=== PATIENT | female | born 1985 | race Caucasian/White ===

== ENCOUNTER 2019-03-12 17:59 | Emergency (ER) | payer OTHER ==
[~2019-03-12] VITALS: Ht 172.7 cm; Wt 127.0 kg
[2019-03-12 18:07] VITALS: BP 154/89
[2019-03-12] MEDS ORDERED: SYNTHROID200 MCG PO (18:10)
[2019-03-12] MEDS ORDERED: PREDNISONE 20 M20 M1 PO (18:22)
[2019-03-12] MEDS ORDERED: ZPAK PO (18:22)
== END 2019-03-12 18:49 | disposition home or self-care (01) ==
LOC: M.ERS 17:59
DX: J40 Bronchitis, not specified as acute or chronic (principal); Z90.89 Acquired absence of other organs; Z98.890 Other specified postprocedural states

== ENCOUNTER 2019-04-02 19:51 | Inpatient (IN) | payer OTHER ==
[~2019-04-02] VITALS: Ht 172.7 cm; Wt 128.4 kg
[~2019-04-02 19:51] MED LIST: PREDNISONE 20 M20 M1 PO; SYNTHROID200 MCG PO; ZPAK PO
[2019-04-02 20:04] VITALS: BP 145/93
[2019-04-02 21:02] LABS: ABSOLUTE LYMPHOCYTES 0.4 thou/uL (0.8-5.3); ABSOLUTE MONOCYTES 0.5 thou/uL (0.0-1.2); ABSOLUTE NEUTROPHILS 2.6 thou/uL (1.6-8.1); HEMOGLOBIN 12.2 gm/dL (12.0-15.0); LYMPHOCYTES 12.1 %; MCH 28.4 pg (26.0-34.0); MCV 83.6 fL (80.0-100.0); MONOCYTES 14.5 %; MPV 8.6 fl. (7.2-11.1); NUCLEATED RBCS 0 /100WBC; PLATELET COUNT* 248 thou/uL (150-400); POLYS 71.4 %; RBC 4.31 mil/uL (4.20-5.00); RDW-CV 12.8 % (10.5-14.5); WBC 3.6 thou/uL (4.0-11.0)
[2019-04-02 21:20] LABS: ALBUMIN 3.4 g/dL (3.4-5.0); CALCIUM 9.1 mg/dL (8.5-10.1); CREATININE 0.9 mg/dL (0.6-1.3); POTASSIUM 3.9 mmol/L (3.5-5.1); TOTAL BILIRUBIN 0.4 mg/dL (<0.1-1.0); TOTAL PROTEIN 7.3 g/dL (6.4-8.2)
[2019-04-02 23:38] LABS: INFLUENZA A ANTIGEN Negative (Negative); INFLUENZA B ANTIGEN Negative (Negative)
[2019-04-02 23:40] LABS: APTT 26.3 Seconds (25.0-31.3); PROTIME 10.7 Seconds (9.20-11.50)
[2019-04-03 00:52] VITALS: BP 137/68
--- NOTE | 2019-04-03 02:41 | NUR ---
PT ADMITTED TO ROOM 225 FROM ED WITH DX OF CP,ELEVATED D-DIMER,DECREASED TSH. PT CTA WAS INCONCLUSIVE R/T PERFUSION. LOVENOX,ASPIRIN AND IV BOLUS GIVEN IN ED. PT IS AOX4, DENIES PAIN AT THIS TIME. VSS ON RA. PT ORIENTED TO POC, TREATMENTS AND ROOM. PT FALL AGREEMENT SIGNED. PT IS SR ON TELE. MEDICATIONS GIVEN PER EMAR.PT IS UP AD MO WITH CALL LIGHT IN REACH.
[2019-04-03 04:00] VITALS: BP 101/61
[2019-04-03 05:07] LABS: HEMATOCRIT 31.1 % (37.0-47.0); HEMOGLOBIN 10.8 gm/dL (12.0-15.0); MCHC 34.8 g/dL (28.0-37.0); MCV 83.5 fL (80.0-100.0); MPV 8.7 fl. (7.2-11.1); NUCLEATED RBCS 0 /100WBC; PLATELET COUNT* 201 thou/uL (150-400); RBC 3.72 mil/uL (4.20-5.00); RDW-CV 12.8 % (10.5-14.5); WBC 2.4 thou/uL (4.0-11.0)
[2019-04-03 05:14] LABS: CREATININE 0.7 mg/dL (0.6-1.3); POTASSIUM 3.7 mmol/L (3.5-5.1)
[2019-04-03 05:56] LABS: ABSOLUTE EOSINOPHILS 0.1 thou/uL (0.0-0.7); ABSOLUTE LYMPHOCYTES 0.4 thou/uL (0.8-5.3); ABSOLUTE MONOCYTES 0.7 thou/uL (0.0-1.2); ABSOLUTE NEUTROPHILS 1.2 thou/uL (1.6-8.1)
[2019-04-03 05:57] LABS: ANISOCYTOSIS 1+; PLATELET ESTIMATE ADEQUATE; POIKILOCYTOSIS 1+
[2019-04-03 07:00] VITALS: BP 122/70
--- NOTE | 2019-04-03 10:18 | NUR ---
CM COMPLETED INITIAL ASSESSMENT TO DISCUSS D/C PLANNING. PT A&OX4. PT FAMILY PRESENT DURING ASSESSMENT. PT LIVES W/SPOUSE AND CHILDREN. "BABYSITS NEPHEW" FOR INCOME. PT IS MEDICAID PENDING. PT HAS GOOD FAMILY SUPPORT. NO DMES, OR ANY HX W/SNF OR HH. CM TO REMAIN AVAIL TO ASSIST NEEDED.
[2019-04-03 11:54] VITALS: BP 118/70
--- NOTE | 2019-04-03 12:52 | EKG ---
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1985 Requested By: Elizabeth Palencia Order Number: [id number] MD: Brandyn Dent Measurements Intervals [place] Rate: 112 P: 58 NH: 169 QRS: -46 QRSD: 97 T: 55 QT: 315 QTc: 430 Interpretive Statements Sinus tachycardia Atrial premature complexes Left anterior fascicular block No previous ECG available for comparison Electronically Signed On 04-03-2019 12:52:05 LABORATORY SCIENTIST by Brandyn Dent [email or web address] <ELECTRONICALLY SIGNED> By: Brandyn Dent MD, [facility] 04/03/19 1252 16 16 Brandyn Dent MD, FACC /EPI
--- NOTE | 2019-04-03 13:44 | NUR ---
Nutrition: Consult received for "hypothyroidism." Pt with Hashimotos, no thyroid at all. Currently adjusting thyroid med/dosages to get it right. Albumin 3.4, decreased TSH. Wt: 280#. Regular diet. Did not go in detail about thyroid-type diet, iodine, etc since pt has no thyroid. Did discuss general healthy diet, adding F/V for more energy. Pt was recptive to conversation. Otherwise, low risk.
[2019-04-03 14:34] LABS: CHOLESTEROL 143 mg/dL (<200); HDL CHOLESTEROL 37 mg/dL (>40); LDL CHOLESTEROL 93 mg/dL (<100); TC:HDL 3.9 Ratio (Not establshd); TRIGLYCERIDE 68 mg/dL (<150); VLDL 14 mg/dL (<40)
[2019-04-03 14:37] LABS: SERUM ASSESSMENT Clear
--- NOTE | 2019-04-03 16:28 | 2DMMODE ---
[place] [address] 2 D/M-MODE ECHOCARDIOGRAM Name: DANG SERRANO Room: [address] IN [facility]#: [id number] Admission: 04/02/19 Attend Phys: Gt King MD Discharge: Date of : 83 Date of Service: 04/03/19 1628 Report #: [id number] THIS REPORT FOR: //name// APPROVED REPORT Study performed: 04/03/2019 15:44:02 EXAM: Comprehensive 2D, Doppler, and color-flow Echocardiogram Patient Location: In-Patient Room #: [facility] Status: routine BSA: 2.36 HR: 86 bpm BP: 118/70 mmHg Rhythm: NSR Other Information Study Quality: Good Indications Tachycardia Chest Pain 2D Dimensions IVSd: 8.50 (7-11mm) LVOT Diam: 19.95 (18-24mm) LVDd: 40.70 mm PWd: 8.39 (7-11mm) Ascending Ao: 26.98 (22-36mm) LVDs: 24.04 (25-40mm) Aortic Root: 29.06 mm Volumes Left Atrial Volume (Systole) LA ESV Index: 22.70 mL/m2 Aortic Valve AoV Peak Adriel.: 1.42 m/s AO Peak Gr.: 8.04 mmHg LVOT Max P.46 mmHg AO Mean Gr.: 4.58 mmHg LVOT Mean P.96 mmHg LVOT Max V: 1.45 m/s AO V2 VTI: 25.53 cm LVOT Mean V: 0.90 m/s MIRA (VTI): 3.20 cm2 LVOT V1 VTI: 26.13 cm Mitral Valve E/A Ratio: 1.46 MV Decel. Time: 234.13 [place] [address] 2 D/M-MODE ECHOCARDIOGRAM Name: DANG SERRANO Room: [address] IN ..#: [id number] Admission: 04/02/19 Attend Phys: Gt King MD Discharge: Date of : 83 Date of Service: 04/03/19 1628 Report #: [id number] MV E Max Adriel.: 0.76 m/s MV PHT: 67.90 ms MVA (PHT): 3.24 cm2 TDI E/Lateral E': 5.43 E/Medial E': 5.85 Medial E' Adriel.: 0.13 m/s Lateral E' Adriel.: 0.14 m/s Pulmonary Valve PV Peak Adriel.: 1.09 m/s PV Peak Gr.: 4.73 mmHg Left Ventricle The left ventricle is normal size. There is normal LV segmental wall motion. There is normal left ventricular wall thickness. Left ventricular systolic function is normal. The left ventricular ejection fraction is within the normal range. LVEF is 60-65%. The left ventricular diastolic function is normal. Right Ventricle The right ventricle is normal size. The right ventricular systolic function is normal. Atria The left atrium size is normal. The right atrium size is normal. Aortic Valve The aortic valve is normal in structure. No aortic regurgitation is present. There is no aortic valvular stenosis. Mitral Valve The mitral valve is normal in structure. There is no mitral valve regurgitation noted. No evidence of mitral valve stenosis. Tricuspid Valve The tricuspid valve is normal in structure. Unable to assess PA pressure. Trace tricuspid regurgitation. Pulmonic Valve The pulmonary valve is normal in structure. Trace pulmonic regurgitation. Great Vessels The aortic root is normal in size. IVC is normal in size and collapses >50% [place] [address] 2 D/M-MODE ECHOCARDIOGRAM Name: DANG SERRANO Room: [address] IN [facility]#: [id number] Admission: 04/02/19 Attend Phys: Gt King MD Discharge: Date of : 83 Date of Service: 04/03/19 1628 Report #: [id number] Pericardium There is no pericardial effusion. <Conclusion> LVEF is 60-65%. The left ventricle is normal size. There is normal left ventricular wall thickness. There is normal LV segmental wall motion. Left ventricular systolic function is normal. The left ventricular ejection fraction is within the normal range. The left ventricular diastolic function is normal. Unable to assess PA pressure. Trace tricuspid regurgitation. Trace pulmonic regurgitation. <ELECTRONICALLY SIGNED> By: Annie Gao MD, FACC 04/03/19 1628 1628 1628 Annie Gao MD, FACC /INF
[2019-04-03 17:06] VITALS: BP 99/63
[2019-04-03 20:00] VITALS: BP 100/43
[2019-04-04] VITALS: BP 96/49
[2019-04-04 02:07] LABS: GLYCOHEMOGLOBIN (HGB A1C) 5.4 % (4.8-5.6)
[2019-04-04 04:00] VITALS: BP 94/51
[2019-04-04 04:03] LABS: HEMATOCRIT 33.5 % (37.0-47.0); HEMOGLOBIN 11.3 gm/dL (12.0-15.0); MCH 28.5 pg (26.0-34.0); MCHC 33.8 g/dL (28.0-37.0); MCV 84.3 fL (80.0-100.0); MPV 8.3 fl. (7.2-11.1); RBC 3.97 mil/uL (4.20-5.00); WBC 2.8 thou/uL (4.0-11.0)
[2019-04-04 04:21] LABS: ALBUMIN 2.9 g/dL (3.4-5.0); CALCIUM 8.7 mg/dL (8.5-10.1); CREATININE 0.7 mg/dL (0.6-1.3); MAGNESIUM 1.7 mg/dL (1.8-2.4); TOTAL BILIRUBIN 0.3 mg/dL (<0.1-1.0); TOTAL PROTEIN 6.2 g/dL (6.4-8.2)
--- NOTE | 2019-04-04 06:37 | NUR ---
PT HAS RESTED COMFORTABLY T/O NIGHT WITHOUT C/O PAIN OR SOA. PT IS NOT CURRENTLY TAKING HOME LEVOTHYROXINE PER EMAR.
[2019-04-04 08:00] VITALS: BP 93/58
--- NOTE | 2019-04-04 10:26 | NUR ---
ASSUMED PT CARE AT 0800, AOX4, UP AD MO, O2 SAT 90'S RA. TRACING SINUS TACH ON TELE. PT DENIES PAIN. PT FOR DISCHARGE. AM ASSESSMENT CHARTED, MEDS GIVEN PER MAR. CALL LIGHT WITHIN REACH WILL CONTINUE TO MONITOR
--- NOTE | 2019-04-04 11:58 | NUR ---
IDANIA spoke with Dr Jess requesting Endo f/u. Pt wants Dr Syd CM contacted Dr Mackey office, cost for patient pay appt will be between $150-280. Updated Pt, per Pt she will have health insurance on 04/16/19. Faxed referral and instructed Pt to contact Dr Velarde's office to schedule an appt post 04/16/19
[2019-04-04 12:00] VITALS: BP 110/55
[2019-04-04 12:51] VITALS: BP 93/58
--- NOTE | 2019-04-04 13:15 | NUR ---
DISCHARGED PLAN DISCUSSED WITH THE PT. MEDICATION PACKET GIVEN. IV, TELE REMOVED. ALL BELONGINGS PACKED AND CHECKED. LEFT THE UNIT AT 1315.
[2019-04-08 22:06] LABS: ADENOVIRUS Negative (Negative); INFLUENZA A Negative (Negative); INFLUENZA B Negative (Negative); METAPNEUMOVIRUS Negative (Negative); PARAINFLUENZA 1 Negative (Negative); PARAINFLUENZA 2 Negative (Negative); PARAINFLUENZA 3 Negative (Negative); RHINOVIRUS Negative (Negative); RSV A Negative (Negative); RSV B Negative (Negative)
== END 2019-04-04 13:15 | disposition home or self-care (01) | DRG 311 ==
LOC: M.ERS 19:51 → M.TBA-ER 23:39 → M.2W 23:39
PROVIDERS: Internal Medicine; Physician Assistant; Registered Nurse; ADMIT Family Medicine
DX: I20.8 Other forms of angina pectoris (principal); Z68.41 Body mass index [BMI] 40.0-44.9, adult; R00.0 Tachycardia, unspecified; E06.3 Autoimmune thyroiditis; E78.5 Hyperlipidemia, unspecified; E66.9 Obesity, unspecified; F41.9 Anxiety disorder, unspecified; R50.9 Fever, unspecified; E03.9 Hypothyroidism, unspecified